=== PATIENT | female | born 1945 | race Caucasian/White ===

== ENCOUNTER 2024-10-31 10:22 | Observation (INO) ==
--- NOTE | 2024-10-31 10:43 | Emergency Department Note ---
HPI - General Adult General Chief complaint: Nausea/Vomiting/Diarrhea Stated complaint: Gastrointestinal cramps Time Seen by Provider: 10/31/24 10:38 Source: patient Mode of arrival: walk-in Limitations: no limitations History of Present Illness HPI narrative: This is a 79 year old female patient that presents to the ER with c/o diffuse abdominal pain with diarrhea for 2 days. Patient states she has a hx of panc reatitis. Patient denies any chest pain, SOB, back pain, fever, chills or N/V Onset (ago): day(s) (2) Location: Reports abdomen Radiation: Reports non-radiation Severity: mild Quality: Reports dull Pain Consistency: Reports constant Relieving factors: Reports none Exacerbating factors: Reports none Associated symptoms: Reports other (diarrhea) Treatments prior to arrival: Reports none Related Data Home Medications Medication Instructions Recorded Confirmed [id number]-[id number]-[id number] 1 tab PO .DAILY PRN migraine 09/15/24 09/15/24 50 mg-325 mg-40 mg tablet headache fluticasone 250 mcg-salmeterol 50 1 inh inhalation BID 09/15/24 09/15/24 mcg/dose blistr powdr for inhalation fluticasone propionate 50 2 spray intranasal DAILY PRN 09/15/24 09/15/24 mcg/actuation nasal allergy symptoms spray,suspension levothyroxine 112 mcg tablet 112 mcg PO QDAC 09/15/24 09/15/24 oxcarbazepine 150 mg tablet 150 mg PO BID 09/15/24 09/15/24 pregabalin 50 mg capsule 50 mg PO BID 09/15/24 09/15/24 primidone 50 mg tablet 50 mg PO DAILY 09/15/24 09/15/24 tizanidine 4 mg tablet 4 mg PO DAILY PRN migraine headache 09/15/24 09/15/24 ubrogepant 100 mg tablet (Ubrelvy) 100 mg PO Q2H PRN migraine headache 09/15/24 09/15/24 Previous Rx's Medication Instructions Recorded famotidine 40 mg tablet (Pepcid) 40 mg PO BID gerd #14 tabs 09/15/24 tramadol 50 mg tablet 50 mg PO Q8H PRN pain #7 tabs 09/15/24 Allergies Allergy/AdvReac Type Severity Reaction Status Date / Time morphine Allergy Mild Verified 10/31/24 11:20 Penicillins Allergy Mild Verified 10/31/24 11:20 tetanus and diphtheria Allergy Mild Verified 10/31/24 11:20 toxoids diphtheria,pertussis Allergy Verified 10/31/24 11:20 (acellular),te (From Adacel(Tdap Adolesn/Adult)(PF)) Review of Systems Status of ROS 10 or more systems reviewed and unremark able except as noted in history and below Constitutional Denies: fever, chills, change in weight, fatigue, malaise or night sweats Eyes Denies: change in vision, blurry vision, blind spots, light sensitivity, eye discomfort or eye discharge Ears, nose, mouth, and throat Denies: throat pain, neck pain, throat swelling, difficulty swallowing or hoarseness Cardiovascular Denies: chest pain, palpitations, edema, swelling of feet/ankles, lightheadedness or shortness of breath with exertion Respiratory Denies: shortness of breath, cough, wheezing, stridor, pain on inspiration or change in phlegm color Gastrointestinal Reports: abdominal pain and diarrhea; Denies: nausea, vomiting, coffee grounds in vomit, heartburn or constipation Genitourinary Denies: painful urination, urinary frequency, urinary urgency, urinary incontinence, blood in urine or difficulty voiding Musculoskeletal Denies: back pain, neck pain, extremity pain, extremity swelling, joint pain, limited range of motion or joint swelling Integumentary/Breast Denies: rash, itching, redness, skin pain, skin tenderness, skin swelling, sores or new lesion Neurological Denies: headache, numbness in extremities, weakness in extremities, lack of coordination, dizziness, vertigo or confusion Psychiatric Denies: anxiety, mood swings, panic attacks, change in sleep pattern, hopelessness or loss of interest Endocrine Denies: excessive urination, excessive thirst, fatigue, cold intolerance or excessive sweating Hematologic/Lymphatic Denies: easy bruising, easy bleeding or enlarged lymph nodes Allergic/Immunologic Denies: hives, throat swelling, tongue swelling, facial swelling, wheezing or itchy eyes [facility] Medical History (Updated 10/31/24 @ 11:20 by Yesy Agrawal, [facility]) Rakel's disease Migraine Thyroid disease HTN (hypertension) Hypothyroidism Hypoalbuminemia Dizzinesses Recurrent falls Seizures Migraines Hypertension Surgical History (System 10/31/24 @ 11:20 by SIGRID Sherman) History of pancreatic surgery History of hysterectomy History of appendectomy History of cholecystectomy Social History (System 10/31/24 @ 11:20 by SIGRID Sherman) Smoking status: never smoker Problems where you live: no known problems Highest level of school completed/degree received: high school Exam Constitutional: normal general appearance and no apparent distress Vital Signs - 24 hr 10/31/24 10:25 10/31/24 10:45 10/31/24 11:00 Temperature 97.4 F L Pulse Rate 82 61 63 Respiratory Rate 20 20 20 Blood Pressure 121/63 144/72 132/60 Pulse Oximetry 98 98 98 Oxygen Delivery Me thod Room Air Room Air Room Air 10/31/24 11:51 Temperature Pulse Rate 65 Respiratory Rate 20 Blood Pressure 154/75 Pulse Oximetry 95 Oxygen Delivery Me thod Room Air HENMT: normocephalic, head/scalp atraumatic, hearing grossly normal bilaterally, external ears normal, EACs normal, nasal mucous membranes normal, external nose normal, oral mucous membranes normal and oropharynx normal Eyes: PERRL, EOMs intact bilaterally, conjunctivae normal and no scleral icterus Neck/C-Spine: visual inspection normal and trachea midline Lymph: no lymphadenopathy noted Chest: inspection of chest normal Respiratory: breath sounds equal bilaterally, normal respiratory effort, clear to auscultation bilaterally, no wheezes, no rales, no retractions and no use of accessory muscles Cardiovascular: normal heart rate noted, regular rhythm noted, no gallop, no rub, no murmur, no JVD, no clicks and peripheral pulses 2+ throughout Gastrointestinal: abdomen normal to inspection, abdomen soft to palpation, tender to palpation (diffuse tenderness), nontender to percussion, nondistended, normoactive bowel sounds, no hepatosplenomegaly, no masses, no pulsatile mass, no ascites and no hernia Genitourinary: no CVA tenderness Back/Pelvis: spine normal to inspection Extremities: normal to inspection, normal to palpation, no tenderness, full ROM, no joint enlargement and no deformity Neurology: no movement abnormality noted, speech normal, coordination normal, no fasciculations noted and GCS normal Psychiatry: mental status grossly normal, oriented x3, thought process normal, cooperative and affect normal Skin: skin color normal Course Course Hospital Course: 1206: VSS, no s/s of acute distress noted, due to patient requiring IV abts due to known resistance in the past to PO ABTs will admit patient to the hospital for further evaluation and treatment Vital Signs Vital signs: Vital Signs Temperature 97.4 F L 10/31/24 10:25 Pulse Rate 82 10/31/24 10:25 Respiratory Rate 20 10/31/24 10:25 Blood Pressure 121/63 10/31/24 10:25 Pulse Oximetry 98 10/31/24 10:25 Oxygen Delivery Method Room Air 10/31/24 10:25 Temperature 97.4 F L 10/31/24 10:25 Pulse Rate 65 10/31/24 11:51 Respiratory Rate 20 10/31/24 11:51 Blood Pressure 154/75 10/31/24 11:51 Pulse Oximetry 95 10/31/24 11:51 Oxygen Delivery Method Room Air 10/31/24 11:51 Medical Decision Making Differential Diagnosis Differential Diagnosis: viral illness Medical Records Medical records reviewed: Yes I reviewed the patient's medical records Lab Data Lab results reviewed: Yes I reviewed the patient's lab results Labs: Lab Results 10/31/24 10/31/24 Range/Units 10:41 11:32 WBC 14.0 H (4.3-9.3) K/uL RBC 5.3 (4.00-5.50) M/uL Hgb 15.6 (12.5-15.8) gm/dL Hct 46.5 (35.9-46.7) % MCV 88.3 (81.0-93.7) fl MCH 29.6 (27.6-32.2) pg MCHC 33.6 (33.1-35.3) g/dl RDW 12.9 (11.4-14.2) % Plt Count 363 H (152-353) K/uL MPV 9.9 (6.9-10.8) fl Gran % 53.9 (47.8-71.3) % Lymph % (Auto) 34.6 (20.0-43.0) % [place] % (Auto) 7.6 (3.6-9.8) % Eos % (Auto) 2.2 (0.4-2.8) % Baso % (Auto) 1.7 H (0.1-0.85) Lymph # (Auto) 4.8 H (1.1-3.1) Mel[place] # (Auto) 1.1 (1.1-3.1) Eos # (Auto) 0.3 H (0.0-0.2) Baso # (Auto) 0.2 H (0.0-0.1) Absolute Gran (auto) 7.5 H (2.3-6.0) Sodium 138 (136-145) mmol/L Potassium 4.0 (3.6-5.2) mmol/L Chloride 99.0 (98-107) mmol/L Carbon Dioxide 27 (21-32) mmol/L Anion Gap 12.0 (4-14) mEq/L BUN 9 (7-18) mg/dL Creatinine 0.9 (0.6-1.3) mg/dL Estimated GFR 65.8 (>59.9) Glucose 88 (70-110) mg/dL Calcium 9.3 (8.5-10.1) mg/dL Total Bilirubin 0.87 (0.0-1.0) mg/dL AST 49 H (15-37) U/L ALT 60 (30-65) U/L Alkaline Phosphatase 85 (50-136) U/L Troponin I High Sens 6.50 (4.0-60.4) ng/L Total Protein 7.8 (6.4-8.2) g/dL Albumin 3.9 (3.4-5.0) g/dL Lipase 36.0 (16.0-77.0) U/L Urine Color Yellow (STRAW/YELL.) Urine Appearance Clear (CLEAR) Ur Specific [place] 1.005 (1.001-1.035) Urine Protein Negative (NEGATIVE) Urine Glucose (UA) Normal (NORMAL) Urine Ketones Negative (NEGATIVE) Urine Occult Blood Negative (NEG - TRACE) Urine Nitrite Negative (NEGATIVE) Urine Bilirubin Negative (NEGATIVE) Urine Urobilinogen Normal (NORMAL) Ur Leukocyte Esterase Negative (NEGATIVE) Fluid pH 7.5 (5 - 9) Imaging Data CT scan - abdomen: Attestation: I have reviewed the pertinent imaging results. ECG Data Attestation: I have reviewed the pertinent ECG results. Discharge Plan Discharge Patient Disposition: Admitted As Observation Condition: Stable Clinical Impression: Colitis, Leukocytosis Time of Disposition: 12:33
[2024-10-31 10:57] LABS: Basophils #(Absolute) Auto 0.2 (0.0-0.1); Basophils%(Percent) Auto 1.7 (0.1-0.85); Eosinophils#(Absolute)Auto 0.3 (0.0-0.2); Eosinophils%(Percent) Auto 2.2 % (0.4-2.8); Granulocytes % - Auto 53.9 % (47.8-71.3); Granulocytes#(Absolute)- Auto 7.5 (2.3-6.0); Hematocrit 46.5 % (35.9-46.7); Mean Corpuscular Volume 88.3 fl (81.0-93.7); Monocytes #(Absolute)- Auto 1.1 (1.1-3.1); Monocytes %(Percent)- Auto 7.6 % (3.6-9.8); Platelet Count 363 K/uL (152-353)
[2024-10-31 12:02] LABS: Specific Gravity Urine 1.005 (1.001-1.035); Urine Appearance CLEAR (CLEAR); Urine Blood NEGATIVE (NEG - TRACE); Urine Color YELLOW (STRAW/YELL.)
[2024-10-31 12:03] LABS: PH BODY FLUID EXCP BLOOD 7.5 (5 - 9); Urine Urobilinogen Normal (NORMAL)
[2024-10-31] MEDS ORDERED: METRONIDAZOLE 500 MG/100ML-NS 500 MG/100 ML PIGGYBACK IV ONE (12:20)
[2024-10-31] MEDS: METRONIDAZOLE 500 MG/100ML-NS 500 MG/100 ML PIGGYBACK IV STA (12:21)
[2024-10-31] MEDS ORDERED: ONDANSETRON HCL/PF 4 MG/2 ML VIAL INJ PRN (14:00)
[2024-10-31] MEDS ORDERED: ACETAMINOPHEN 500 MG TABLET PO PRN (14:00)
[2024-10-31] MEDS: CIPROFLOXACIN 400 MG/200ML-D5W 400 MG/200 ML PIGGYBACK IV SCH (14:02)
[2024-10-31] MEDS: 0.9 % SODIUM CHLORIDE 1000 ML 1,000 ML IV SCH (14:02)
[2024-10-31] MEDS: METRONIDAZOLE 500 MG/100ML-NS 500 MG/100 ML PIGGYBACK IV SCH (20:50)
[2024-11-01] MEDS ORDERED: TIZANIDINE HCL 4 MG TABLET PO PRN (00:22)
[2024-11-01 05:59] LABS: Basophils #(Absolute) Auto 0.1 (0.0-0.1); Eosinophils#(Absolute)Auto 0.3 (0.0-0.2); Eosinophils%(Percent) Auto 2.7 % (0.4-2.8); Granulocytes % - Auto 59.8 % (47.8-71.3); Granulocytes#(Absolute)- Auto 7.5 (2.3-6.0); Hematocrit 43.3 % (35.9-46.7); Mean Corpuscular Volume 89.4 fl (81.0-93.7); Monocytes #(Absolute)- Auto 0.9 (1.1-3.1); Monocytes %(Percent)- Auto 6.9 % (3.6-9.8); Platelet Count 306 K/uL (152-353); White Blood Count 12.6 K/uL (4.3-9.3)
[2024-11-01 06:22] LABS: Potassium 3.4 mmol/L (3.6-5.2)
[2024-11-01 08:23] VITALS: RESP 18
[2024-11-01] MEDS ORDERED: AMITRIPTYLINE 25 MG PO SCH (09:00)
[2024-11-01] MEDS ORDERED: PREGABALIN 50 MG PO SCH (09:00)
[2024-11-01] MEDS: LEVOTHYROXINE PO SCH (10:24)
[2024-11-01] MEDS: PREGABALIN 25 MG CAPSULE PO SCH (10:24)
[2024-11-01] MEDS: [UNRECOGNIZED DRUG - OTHER] PO SCH (10:24)
[2024-11-01] MEDS: PRIMIDONE 50 MG TABLET PO SCH (10:25)
[2024-11-01] MEDS: OXcarbazepine 150 MG TABLET PO SCH (10:25)
[2024-11-01] MEDS: AMITRIPTYLINE HCL 10 MG TABLET PO SCH (10:25)
[2024-11-01] MEDS: LEVOTHYROXINE SODIUM 112 MCG TABLET PO SCH (10:27)
[2024-11-01 12:16] VITALS: BP 167/82; PULSE 68; TEMP 98.2
--- NOTE | 2024-11-01 15:18 | Short Stay Summary ---
H&P: HPI History of Present Illness Chief complaint: COLITIS,LEUKOCYTOSIS Narrative: This is a 79 year old female patient that presents to the ER with c/o diffuse abdominal pain with diarrhea for 2 days. Patient states she has a hx of pancreatitis. Patient denies any chest pain, SOB, back pain, fever, chills or N/V. Patient admitted to med/surg for observation and treatment. Review of Systems Status of ROS 10 or more systems reviewed and unremark able except as noted in history and below Constitutional Denies: fever, chills, change in weight, fatigue, malaise or night sweats Eyes Denies: change in vision, blurry vision, blind spots, light sensitivity, eye discomfort or eye discharge Ears, nose, mouth, and throat Denies: throat pain, neck pain, throat swelling, difficulty swallowing, hoarseness or vertigo Cardiovascular Denies: chest pain, palpitations, edema, swelling of feet/ankles, lightheadedness or shortness of breath with exertion Respiratory Denies: shortness of breath, cough, wheezing, stridor, pain on inspiration or change in phlegm color Gastrointestinal Reports: abdominal pain and diarrhea; Denies: nausea, vomiting, coffee grounds in vomit, heartburn, constipation or difficulty swallowing Genitourinary Denies: painful urination, urinary frequency, urinary urgency, urinary incontinence, blood in urine or difficulty voiding Musculoskeletal Denies: back pain, neck pain, extremity pain, extremity swelling, joint pain, limited range of motion or joint swelling Integumentary/Breast Denies: rash, itching, redness, skin pain, skin tenderness, skin swelling, sores or new lesion Neurological Denies: headache, numbness in extremities, weakness in extremities, lack of coordination, dizziness, vertigo or confusion Psychiatric Denies: anxiety, mood swings, panic attacks, change in sleep pattern, hopelessness or loss of interest Endocrine Denies: excessive urination, excessive thirst, fatigue, cold intolerance or excessive sweating Hematologic/Lymphatic Denies: easy bruising, easy bleeding or enlarged lymph nodes Allergic/Immunologic Denies: hives, throat swelling, tongue swelling, facial swelling, wheezing or itchy eyes [facility] Medical History (Updated 11/01/24 @ 13:39 by JANICE Juarez) Diarrhea Rakel's disease Migraine Thyroid disease HTN (hypertension) Hypothyroidism Hypoalbuminemia Dizzinesses Recurrent falls Seizures Migraines Hypertension Surgical History (System 10/31/24 @ 11:20 by Yesy Agrawal [facility]) History of pancreatic surgery History of hysterectomy History of appendectomy History of cholecystectomy Social History (System 10/31/24 @ 11:20 by Yesy Agrawal [facility]) Smoking status: never smoker Problems where you live: no known problems Highest level of school completed/degree received: high school Meds Home Medications and Allergies Home Medications Medication Instructions Recorded Confirmed Type ntdqmoweva-[id number]-[id number] 1 tab PO .DAILY PRN migraine 09/15/24 10/31/24 History 50 mg-325 mg-40 mg tablet headache fluticasone 250 mcg-salmeterol 50 1 inh inhalation BID 09/15/24 10/31/24 History mcg/dose blistr powdr for inhalation oxcarbazepine 150 mg tablet 150 mg PO BID 09/15/24 10/31/24 History pregabalin 50 mg capsule 50 mg PO BID 09/15/24 10/31/24 History primidone 50 mg tablet 50 mg PO DAILY 09/15/24 10/31/24 History tizanidine 4 mg tablet 4 mg PO DAILY PRN migraine headache 09/15/24 10/31/24 History amitriptyline 25 mg tablet 25 mg PO DAILY 10/31/24 10/31/24 History ciprofloxacin HCl 500 mg tablet 500 mg PO Q12H colitis #14 tabs 11/01/24 Rx (Cipro) levothyroxine 112 mcg tablet 125 mcg (1.1161 x 112 mcg) PO QDAC 11/01/24 10/31/24 Rx hypothyroid #30 tabs metronidazole 500 mg tablet 500 mg PO Q8H colitis #20 tabs 11/01/24 Rx Allergies Allergy/AdvReac Type Severity Reaction Status Date / Time morphine Allergy Mild Verified 10/31/24 11:20 Penicillins Allergy Mild Verified 10/31/24 11:20 tetanus and diphtheria Allergy Mild Verified 10/31/24 11:20 toxoids diphtheria,pertussis Allergy Verified 10/31/24 11:20 (acellular),te (From Adacel(Tdap Adolesn/Adult)(PF)) Exam Exam: Patient in low dempsey's position upon entering room for exam. She states she is feeling better. Constitutional: normal general appearance, no apparent distress, abnormal body habitus (obese), no limitations and alert Vital Signs - 24 hr 10/31/24 16:23 11/01/24 04:00 11/01/24 08:00 Temperature 97.9 F 98.3 F 97.8 F Pulse Rate [Left B rachial] 60 67 80 Respiratory Rate 19 17 18 Blood Pressure [Le ft Arm] 144/61 166/69 185/72 Pulse Oximetry 96 98 97 Oxygen Delivery Me thod Room Air Room Air Room Air 11/01/24 12:00 Temperature 98.2 F Pulse Rate [Left B rachial] 68 Respiratory Rate 18 Blood Pressure [Le ft Arm] 167/82 Pulse Oximetry 95 Oxygen Delivery Me thod Room Air HENMT: normocephalic, head/scalp atraumatic, hearing grossly normal bilaterally, external ears normal, EACs normal, nasal mucous membranes normal, external nose normal, oral mucous membranes normal and oropharynx normal Eyes: PERRL, EOMs intact bilaterally, conjunctivae normal and no scleral icterus Neck/C-Spine: visual inspection normal and trachea midline Lymph: no lymphadenopathy noted Chest: inspection of chest normal Respiratory: breath sounds equal bilaterally, normal respiratory effort, clear to auscultation bilaterally, no wheezes, no rales, no retractions and no use of accessory muscles Cardiovascular: normal heart rate noted, regular rhythm noted, no gallop, no rub, no murmur, no JVD, no clicks and peripheral pulses 2+ throughout Gastrointestinal: abdomen normal to inspection, abdomen soft to palpation, nontender to palpation, nontender to percussion, nondistended and normoactive bowel sounds Genitourinary: no CVA tenderness and bladder normal to palpation Back/Pelvis: spine normal to inspection, no thoracic spine tenderness, no lumbar spine tenderness, thoracic spine ROM normal and lumbar spine ROM normal Extremities: normal to inspection, normal to palpation, no tenderness, full ROM, no joint enlargement and no deformity Neurology: no movement abnormality noted, speech normal, coordination normal, no fasciculations noted and GCS normal Psychiatry: mental status grossly normal, oriented x3, thought process normal, cooperative and affect normal Skin: skin color normal and skin turgor normal Assessment and Plan Assessment and Plan (1) Colitis: Code(s): K52.9 - Noninfective gastroenteritis and colitis, unspecified (2) Abdominal pain: Qualifiers: Abdominal location: lower abdomen, unspecified Qualified Code(s): R10.30 - Lower abdominal pain, unspecified Code(s): R10.9 - Unspecified abdominal pain (3) Diarrhea: Qualifiers: Diarrhea type: unspecified type Qualified Code(s): R19.7 - Diarrhea, unspecified Code(s): R19.7 - Diarrhea, unspecified (4) Hypertension: Qualifiers: Hypertension type: primary hypertension Qualified Code(s): I10 - Essential (primary) hypertension Code(s): I10 - Essential (primary) hypertension (5) Thyroid disease: Code(s): E07.9 - Disorder of thyroid, unspecified (6) 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 (7) Leukocytosis: Qualifiers: Leukocytosis type: unspecified Qualified Code(s): D72.829 - Elevated white blood cell count, unspecified Code(s): D72.829 - Elevated white blood cell count, unspecified Plan Sodium Chloride 1,000 mls @ 100 mls/hr IV CONT Ciprofloxacin/Dextrose 400 mg in 200 mls @ 200 mls/hr IV Q12H Metronidazole 500 mg in 100 mls @ 100 mls/hr IV Q8H Oxcarbazepine 150 mg PO BID Primidone 50 mg PO DAILY Pregabalin 50 mg PO BID Amitriptyline Hcl 25 mg PO DAILY Levothyroxine Sodium 125 mcg PO QDAC Acetaminophen 500 mg PO Q6H PRN Ondansetron Hcl 4 mg PO Q6H PRN Tizanidine Hcl 4 mg PO DAILY PRN Patient being discharged home for self care. Results Labs Labs: CBC WBC 12.6 K/uL (4.3-9.3) H 11/01/24 05:30 RBC 4.8 M/uL (4.00-5.50) 11/01/24 05:30 Hgb 14.8 gm/dL (12.5-15.8) 11/01/24 05:30 Hct 43.3 % (35.9-46.7) 11/01/24 05:30 MCV 89.4 fl (81.0-93.7) 11/01/24 05:30 MCH 30.6 pg (27.6-32.2) 11/01/24 05:30 MCHC 34.2 g/dl (33.1-35.3) 11/01/24 05:30 RDW 13.5 % (11.4-14.2) 11/01/24 05:30 Plt Count 306 K/uL (152-353) 11/01/24 05:30 MPV 9.5 fl (6.9-10.8) 11/01/24 05:30 Gran % 59.8 % (47.8-71.3) 11/01/24 05:30 Lymph % (Auto) 29.6 % (20.0-43.0) 11/01/24 05:30 [place] % (Auto) 6.9 % (3.6-9.8) 11/01/24 05:30 Eos % (Auto) 2.7 % (0.4-2.8) 11/01/24 05:30 Baso % (Auto) 1.0 (0.1-0.85) H 11/01/24 05:30 Lymph # (Auto) 3.7 (1.1-3.1) H 11/01/24 05:30 [place] # (Auto) 0.9 (1.1-3.1) L 11/01/24 05:30 Eos # (Auto) 0.3 (0.0-0.2) H 11/01/24 05:30 Baso # (Auto) 0.1 (0.0-0.1) 11/01/24 05:30 Absolute Gran (auto) 7.5 (2.3-6.0) H 11/01/24 05:30 BMP Sodium 139 mmol/L (136-145) 11/01/24 05:30 Potassium 3.4 mmol/L (3.6-5.2) L 11/01/24 05:30 Chloride 102.0 mmol/L (98-107) 11/01/24 05:30 Carbon Dioxide 25 mmol/L (21-32) 11/01/24 05:30 Anion Gap 12.0 mEq/L (4-14) 11/01/24 05:30 BUN 7 mg/dL (7-18) 11/01/24 05:30 Creatinine 0.9 mg/dL (0.6-1.3) 11/01/24 05:30 Estimated GFR 65.8 (>59.9) 11/01/24 05:30 Glucose 90 mg/dL (70-110) 11/01/24 05:30 Calcium 9.0 mg/dL (8.5-10.1) 11/01/24 05:30 Phosphorus 3.2 mg/dL (2.5-4.9) 11/01/24 05:30 Magnesium 1.8 mg/dL (1.8-2.4) 11/01/24 05:30 Total Bilirubin 0.67 mg/dL (0.0-1.0) 11/01/24 05:30 AST 33 U/L (15-37) 11/01/24 05:30 ALT 47 U/L (30-65) 11/01/24 05:30 Alkaline Phosphatase 77 U/L (50-136) 11/01/24 05:30 Total Protein 7.1 g/dL (6.4-8.2) 11/01/24 05:30 Albumin 3.6 g/dL (3.4-5.0) 11/01/24 05:30 Cardiac Enzymes Troponin I High Sens 6.50 ng/L (4.0-60.4) 10/31/24 10:41 Liver Function Total Bilirubin 0.67 mg/dL (0.0-1.0) 11/01/24 05:30 AST 33 U/L (15-37) 11/01/24 05:30 ALT 47 U/L (30-65) 11/01/24 05:30 Alkaline Phosphatase 77 U/L (50-136) 11/01/24 05:30 Total Protein 7.1 g/dL (6.4-8.2) 11/01/24 05:30 Albumin 3.6 g/dL (3.4-5.0) 11/01/24 05:30 Urine Urine Color Yellow (STRAW/YELL.) 10/31/24 11:32 Urine Appearance Clear (CLEAR) 10/31/24 11:32 Ur Specific [place] 1.005 (1.001-1.035) 10/31/24 11:32 Urine Protein Negative (NEGATIVE) 10/31/24 11:32 Urine Glucose (UA) Normal (NORMAL) 10/31/24 11:32 Urine Ketones Negative (NEGATIVE) 10/31/24 11:32 Urine Occult Blood Negative (NEG - TRACE) 10/31/24 11:32 Urine Nitrite Negative (NEGATIVE) 10/31/24 11:32 Urine Bilirubin Negative (NEGATIVE) 10/31/24 11:32 Urine Urobilinogen Normal (NORMAL) 10/31/24 11:32 Ur Leukocyte Esterase Negative (NEGATIVE) 10/31/24 11:32 Imaging Imaging ordered: CT scan - abdomen Radiologist's impression: CT abdomen pelvis with contrast Date of Service: 10/31/24 HISTORY: Abdominal pain, nausea, vomiting TECHNIQUE: Axial postcontrast images with coronal and sagittal reformats. Dose reduction procedures were used with mA/kv adjusted for body size. COMPARISON: 03/13/2024 FINDINGS: Lung bases are clear. The liver, spleen, adrenal glands, and pancreas are within normal limits. Patient is status post cholecystectomy. Kidneys are unobstructed and without stones or masses. No ureteral calculi are identified. Appendix is not identified with absolute certainty. There are no secondary signs of appendicitis present. Calcific atherosclerotic changes present in the nondilated abdominal aorta. No intraperitoneal or retroperitoneal lymphadenopathy of significance is identified. No definite gastric or duodenal abnormality identified. There are no findings suggestive of enteritis. There is diffuse diverticulosis of the distal descending and sigmoid colon without definite evidence for diverticulitis. There is a question of some transmural thickening in the descending and sigmoid colon which could indicate developing segmental colitis which could be infectious, inflammatory, or ischemic in origin. Alternatively this could be a spurious finding due to a paucity of intraluminal contents in this portion of the colon. Clinical correlation as to the presence of abdominal pain and diarrhea should be helpful. Examination of the pelvis demonstrated no evidence for pelvic masses, pelvic fluid, or pelvic lymphadenopathy. No bladder abnormality is identified. No lytic or blastic skeletal lesions of significance identified. IMPRESSION: Question of some transmural thickening involving the descending and sigmoid colon. If this is a real finding it could indicate a developing acute colitis which could be infectious, ischemic, or inflammatory in origin. Alternatively this could be a spurious finding due to a near-complete lack of intraluminal contents in this portion of the colon. Clinical correlation as the presence or absence of abdominal pain and diarrhea should be helpful in making this distinction. DS: Providers Provider Date of admission: 10/31/24 12:40 Primary care physician: Teo Townsend MD Admitting clinician: Michelle Wooten Attending physician on admission: Nena Prather Attending physician on discharge: Nena Yamilka Discharging clinician: Nena Prather Anticipated date of discharge: 11/01/24 DS: Summary Hospital Course Hospital Course: This is a 79 year old female patient that presents to the ER with c/o diffuse abdominal pain with diarrhea for 2 days. Patient states she has a history of pancreatitis. Patient denies any chest pain, SOB, back pain, fever, chills or N/V. Patient admitted to med/surg for observation and treatment. Day 1 of hospital stay, patient is feeling better than previous day. Cramps have subsided and minimal at this time. Colitis has improved with Ciprofloxacin and Metronidazole. Patient is back to baseline and ready to discharge home for self care. Follow up with PCP in 5 days of discharge. GI specialist follow up appointment has been made with Dr. Mello Irving MD. Status at Discharge Functional status at discharge: independent ambulation Overall status at discharge: patient is back to baseline Time Spent with Patient Time attestation: Total time spent providing and/or coordinating discharge services: Time spent: greater than 30 minutes Discharge Plan Discharge Disposition: Home, Self-Care Condition: Improved Discharge Medications: New ciprofloxacin HCl [Cipro] 500 mg tablet 500 mg PO Q12H Qty: 14 0RF metronidazole 500 mg tablet 500 mg PO Q8H Qty: 20 0RF Continued [id number]-jytf 50-325-40 mg tablet 1 tab PO .DAILY PRN (Reason: migraine headache) fluticasone propion-salmeterol 250-50 mcg/dose blister with device 1 inh INHALATION BID Patient Comments: LAST FILLED ON 08/31/24, DOES NOT LOOK TO BE COMPLIANT oxcarbazepine 150 mg tablet 150 mg PO BID pregabalin 50 mg capsule 50 mg PO BID primidone 50 mg tablet 50 mg PO DAILY tizanidine 4 mg tablet 4 mg PO DAILY PRN (Reason: migraine headache) amitriptyline 25 mg tablet 25 mg PO DAILY Changed levothyroxine 112 mcg tablet 125 mcg PO QDAC Qty: 30 0RF Rx Instructions: can use the 125 mg tabs from her pharmacy Discontinued hydrochlorothiazide 25 mg tablet 25 mg PO DAILY Discharge Orders: Discharge Order (Routine); Ordered 11/01/24 Ordered By: Nena Prather Diet: other Diet Detail: keep diet soft and bland no seeds or nuts Interventions: Discharge Assessment Last Done: 11/01/24 13:13 MED/SURG & ICU Observation Charge Sheet Last Done: 11/01/24 13:16 Patient Instructions: Colitis (ED) Activity Restrictions/Additional Instructions: return to ER or PCP sh[place]onne if the abdominal pain/diarrhea recurs. advance diet as directed by her PCP and needs a follow up with PCP 5 days and follow up GI medicine as appointment. START ANTIBIOTICS TODAY NOVEMBER 01, 2024 DIRECTED. FOLLOW-UP WITH DR. SHULTZ AND DR. IRVING AT APPOINTMENTS GIVEN. MAINTAIN A BLAND DIET UNTIL FURTHER INSTRUCTED BY YOUR PCP Forms: Portal/Health Info Access Inst Follow-Ups: Teo Townsend MD [Primary Care Provider] -
== END 2024-11-01 14:43 | disposition home or self-care (01) ==
LOC: ED 10:22 → MS 10:22 → MERGE 10:22 → MS 13:06
PROVIDERS: ADMIT Nurse Practitioner Family; ATTEND Family Medicine
DX: K52.89 Other specified noninfective gastroenteritis and colitis; D72.828 Other elevated white blood cell count; R19.7 Diarrhea, unspecified; E07.89 Other specified disorders of thyroid; R10.30 Lower abdominal pain, unspecified; I10 Essential (primary) hypertension; E06.3 Autoimmune thyroiditis